=== PATIENT | female | born 1965 | race Hispanic/Latino ===

== ENCOUNTER 2017-01-16 14:08 | Emergency (ER) | payer MEDICAID ==
[2017-01-16] MEDS ORDERED: KEPPRA 1,000 MG in NACL 0.9% 100 ML IV ONE (15:36)
[2017-01-16] MEDS ORDERED: KEPPRA 1,000 MG/NS 0.75% 100ML 1,000 MG/100 ML BAG IV ONE (15:48)
[2017-01-16] MEDS ORDERED: MORPHINE IV ONE (15:54)
--- NOTE | 2017-01-16 16:23 | XRay Report ---
Right hip 2 views: History: Pain. Findings: There is suspicion of mild arthritic changes noted the joint. No fracture dislocation or soft tissue calcification. Impression: Mild arthritic changes hip joint.
--- NOTE | 2017-01-16 16:24 | XRay Report ---
Right forearm 2 views: History: Pain. Findings: No fracture, periosteal reaction lytic lesion. Impression: Essentially negative right forearm. Incidentally noted soft tissue swelling at the posterior aspect of the olecranon process ulna probably related to bursitis.
[2017-01-16 16:42] LABS: Hematocrit 38.2 % (30.3-42.9); Hemoglobin 12.8 gm/dl (10.1-14.3); Mean Corpuscular HGB Conc 34 % (30-34); Mean Corpuscular Hemoglobin 31 pg (28-32); Mean Corpuscular Volume 91 fl (79-97); Platelet Count 431 K/mm3 (140-440); Red Blood Count 4.18 M/mm3 (3.65-5.03); Red Cell Distribution Width 13.9 % (13.2-15.2)
[2017-01-16 16:43] LABS: White Blood Count 23.3 K/mm3 (4.5-11.0)
[2017-01-16] MEDS ORDERED: NORCO 5/325 PO ONE (16:46)
[2017-01-16] MEDS ORDERED: TYLENOL PO ONE (16:53)
[2017-01-16] MEDS ORDERED: NAPROSYN PO ONE (16:53)
[2017-01-16 17:01] LABS: Anion Gap 22 mmol/L; BUN/Creatinine Ratio 30; Blood Urea Nitrogen 12 mg/dL (7-17); Calcium 9.6 mg/dL (8.4-10.2); Carbon Dioxide 25 mmol/L (22-30); Chloride 97.8 mmol/L (98-107); Glucose 127 mg/dL (65-100); Potassium 3.5 mmol/L (3.6-5.0); Sodium 141 mmol/L (137-145)
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
[2017-01-16 18:44] VITALS: BP 151/112
== END 2017-01-16 19:01 | disposition home or self-care (01) ==
LOC: ED 14:08
DX: R56.9 Unspecified convulsions (principal); M25.551 Pain in right hip; M79.631 Pain in right forearm; Z91.14 Patient's other noncompliance with medication regimen; I10 Essential (primary) hypertension; E11.9 Type 2 diabetes mellitus without complications; F31.9 Bipolar disorder, unspecified; F17.200 Nicotine dependence, unspecified, uncomplicated
CPT/HCPCS: 36415; 73090; 73502; 80048; 85027; 96365; 99285; J1953

== ENCOUNTER 2018-11-25 06:48 | Day surgery (SDC) | payer MEDICAID ==
[2018-11-25] MEDS ORDERED: DIPRIVAN 10 MG/ML IV ONE ×3 (07:49→08:59)
[2018-11-25] MEDS ORDERED: NACL 0.9% 1000 ML 1,000 ML IV SCH (08:00)
--- NOTE | 2018-11-25 08:07 | Anesthesia Consultation ---
Anesthesia Consult and Med Hx Date of service: 11/25/18 - Airway Anesthetic Teeth Evaluation: Dentures ROM Head & Neck: Adequate Mental/Hyoid Distance: Adequate Mallampati Class: Class II Intubation Access Assessment: Good - Pulmonary Exam CTA: Yes - Pre-Operative Health Status ASA Pre-Surgery Classification: ASA3 Proposed Anesthetic Plan: MAC - Pre-Anesthesia Comment Pre-Anesthesia Comments: heart murmur - Pulmonary Hx Smoking: Yes Hx Asthma: No Hx Respiratory Symptoms: No SOB: No COPD: No Home Oxygen Therapy: No Hx Pneumonia: No Hx Sleep Apnea: Yes - Cardiovascular System Hx Hypertension: Yes Hx Coronary Artery Disease: No Hx Heart Attack/AMI: No Hx Angina: No Hx Percutaneous Transluminal Coronary Angioplasty (PTCA): No Hx Cardia Arrhythmia: Yes Hx Pacemaker: No Hx Internal Defibrillator: No Hx Valvular Heart Disease: No Hx Heart Murmur: Yes Hx Peripheral Vascular Disease: No - Central Nervous System Hx Neuromuscular Disorder: No Hx Seizures: Yes Hx Back Pain: Yes Hx Psychiatric Problems: Yes (anexity/depression) - Gastrointestinal Hx Ulcer: No Hx Gastroesophageal Reflux Disease: Yes - Endocrine Hx Renal Disease: No Hx End Stage Renal Disease: No Hx Cirrhosis: No Hx Liver Disease: No Hx Insulin Dependent Diabetes: No Hx Non-Insulin Dependent Diabetes: No Hx Thyroid Disease: No Hx Hypothyroidism: No Hx Hyperthyroidism: No - Hematic Hx Anemia: No Hx Sickle Cell Disease: No - Other Systems Hx Alcohol Use: No Hx Substance Use: No Hx Cancer: No Hx Obesity: No
--- NOTE | 2018-11-25 08:09 | Anesthesia Day of Surgery ---
Anesthesia Day of Surgery - Day of Surgery Patient Examined: Yes Patient H&P Reviewed: Yes Patient is NPO: Yes Beta Blockers: No
[2018-11-25] MEDS ORDERED: WATER FOR IRRIG STERILE IR ONE (08:16)
[2018-11-25] MEDS ORDERED: WATER FOR IRRIG STERILE ONE (08:16)
[2018-11-25] MEDS ORDERED: XYLOCAINE MPF 2% ONE (08:30)
--- NOTE | 2018-11-25 09:11 | Short Stay Summary ---
Short Stay Documentation Date of service: 11/25/18 Narrative H&P: The patient presents for her first screening colonoscopy, high risks due to first degree family members with colon polyps (mother). - History Past Medical History: hypertension, seizures, other (anxiety/depression) Past Surgical History: No surgical history Social history: no significant social history, no smoking, no alcohol abuse - Allergies and Medications Current Medications: Allergies codeine Allergy (Verified 08/20/13 11:35) Itching shellfish derived Allergy (Verified 08/20/13 11:35) Hives tetanus immune globulin Allergy (Verified 08/20/13 11:35) Rash Home Medications Medication Instructions Recorded Confirmed Last Taken Type Amitriptyline 50 mg PO DAILY 11/25/18 11/25/18 11/24/18 History Depakote ER 1 tab PO DAILY 11/25/18 11/25/18 11/24/18 History Prozac 1 tab PO DAILY 11/25/18 11/25/18 11/24/18 History Active Medications Sodium Chloride (Nacl 0.9% 1000 Ml) 1,000 mls @ 50 mls/hr IV DIRECT PABLO Last Admin: 11/25/18 07:42 Dose: 50 mls/hr Documented by: - Physical exam General appearance: no acute distress, well-nourished Integumentary: no rash, no growths, no abnormal pigmentation, other (extensive tattoos on upper extremities and lower back) HEENT: Atraumatic, PERRLA, EOMI, Mucous membr. moist/pink Lungs: Clear to auscultation, Normal air movement Breasts: deferred Heart: Regular rate, Normal S1, Normal S2, No murmurs Gastrointestinal: normoactive bowel sounds, no tenderness, no distended, no masses, no guarding, no organomegaly Female Genitourinary: deferred Rectal Exam: normal exam-external/orifice, normal rectal tone, no mass Extremities: no ischemia, pulses intact, pulses symmetrical, No edema, normal temperature, normal color, Full ROM Neurological: Normal gait, Normal speech, Strength at 5/5 X4 ext, Normal tone, Sensation intact, Cranial nerves 3-12 NL - Brief post op/procedure progress note Date of procedure: 11/25/18 Findings: see dictation Estimated blood loss: none Pathology: list (biopsies of descending colon ulceration) Specimen disposition: to lab Condition: stable - Disposition Condition at discharge: Good Disposition: DC-01 TO HOME OR SELFCARE - Discharge Diagnoses (1) Family history of colonic polyps Status: Acute Short Stay Discharge Plan Activity: other (no driving for 24 hours) Diet: regular
--- NOTE | 2018-11-25 09:16 | Operative Report ---
Operative Report Operative Report: Date of procedure: 11/25/2018 Preprocedure diagnosis: High risk screening colonoscopy. Family history of col on polyps, mother. No prior colon screening. Post procedure diagnosis: Patchy deep ulceration of the descending colon suggestive of ischemic colitis. Suboptimal prep. Procedure: Colonoscopy to the cecum with biopsies of descending colon ulceration. Endoscopist: Dr. Bucio Anesthesia: Monitored anesthesia care per anesthesia department Estimated blood loss: 0 Medications: Monitored anesthesia care. See separate report by anesthesia for details. After careful discussion of the nature and purpose of the procedure as well as details of the technique risks benefits and alternatives the patient gave consent. Please see recent history and physical from the office. The patient was placed in the left lateral decubitus position and medicated per anesthesia. A rectal exam was performed sphincter tone was normal there were no masses palpable. [employer] [facility] 570 scope was passed transanally and advanced under continuous direct vision without difficulty to the cecum. The colon was fair overall with there being thick liquid stool and some areas of the left colon precluding good visualization of the mucosa. The cecum was normal. The ascending colon was normal and on forward and retroflexed views. The transverse colon was normal. In the descending colon there was scattered thick liquid stool and a 30 cm and left area with patchy large serpiginous ulcers and normal intervening mucosa. Findings were suggestive of ischemic colitis. Multiple biopsies were obtained. There was thick liquid stool in the sigmoid colon and rectum reducing the visibility of the mucosa. The area was irrigated, but not all of the mucosa could be well seen. The rectum was otherwise normal on forward and retroflexed views. The procedure was well-tolerated overall and the patient was observed in recovery. Conclusions: Patchy deep ulcers in the descending colon suggestive of ischemic colitis. Rule out Crohn's. Suboptimal prep in the left colon. Plan: Await pathology. Office follow-up in 2 weeks for discussion. Repeat colonoscopy in approximately 1 year due to suboptimal prep. Signed electronically: Mike Bucio M.D.
[2018-11-25 09:42] VITALS: BP 131/84
== END 2018-11-25 06:49 | disposition home or self-care (01) ==
LOC: GIO 06:48
PROVIDERS: ATTEND Internal Medicine Gastroenterology
DX: Z12.11 Encounter for screening for malignant neoplasm of colon (principal); K31.89 Other diseases of stomach and duodenum; I10 Essential (primary) hypertension; G47.30 Sleep apnea, unspecified; K21.9 Gastro-esophageal reflux disease without esophagitis; F41.9 Anxiety disorder, unspecified; F31.9 Bipolar disorder, unspecified; F17.210 Nicotine dependence, cigarettes, uncomplicated; Z83.71 Family history of colonic polyps; Z88.5 Allergy status to narcotic agent; Z91.013 Allergy to seafood; Z79.899 Other long term (current) drug therapy; Z98.891 History of uterine scar from previous surgery; Z98.890 Other specified postprocedural states; Z88.8 Allergy status to other drugs, medicaments and biological substances
CPT/HCPCS: 45380; 88305; J2704; J7030